=== PATIENT | male | born 1980 | race African-American/Black ===

== ENCOUNTER 2023-02-05 15:32 | Emergency (ER) | payer MEDICAID ==
[~2023-02-05] VITALS: Ht 182.9 cm; Wt 74.8 kg
[2023-02-05 15:40] VITALS: BP 125/74; TEMP 98.3
[2023-02-05 16:29] VITALS: O2SAT 100
== END 2023-02-05 16:31 | disposition home or self-care (01) ==
LOC: ER 15:36
DX: M79.672 Pain in left foot (principal); M79.671 Pain in right foot; Z60.2 Problems related to living alone